=== PATIENT | female | born 2000 | race Two or more races ===

== ENCOUNTER 2019-01-02 06:26 | Emergency (ER) | payer SELFPAY ==
[~2019-01-02] VITALS: Ht 157.5 cm; Wt 55.0 kg
[2019-01-02] MEDS ORDERED: ONDANSETRON 4MG ODT PO ONE (07:45)
[2019-01-02 08:00] LABS: CLARITY URINE CLOUDY (CLEAR); COLOR URINE YELLOW (YELLOW); KETONES URINE NEGATIVE (NEGATIVE); LEUKOCYTE ESTERASE URINE 2+ (NEGATIVE); NITRITE URINE NEGATIVE (NEGATIVE); OCCULT BLOOD URINE NEGATIVE (NEGATIVE); PROTEIN URINE NEGATIVE (NEGATIVE); SPECIFIC GRAVITY URINE 1.023 (1.005-1.030); UROBILINOGEN URINE 0.2 E.U./dL (0.2-1.0)
[2019-01-02 08:51] VITALS: BP 128/78
== END 2019-01-02 08:52 | disposition home or self-care (01) ==
LOC: ER 06:26
DX: N12 Tubulo-interstitial nephritis, not specified as acute or chronic (principal)
CPT/HCPCS: 81003; 81025; 99283; Q0162